=== PATIENT | male | born 1970 | race African-American/Black ===

== ENCOUNTER 2019-11-23 14:12 | Observation (INO) ==
[2019-11-23] MEDS ORDERED: ENOXAPARIN 100 MG/ML SYRINGE SUBCUT STA (14:17)
[2019-11-23 14:27] LABS: Basophils % 0.4 % (0.0-0.8); Eosinophils # 0.1 10*3/uL (0.0-0.87); Hematocrit 40.3 VOL% (42.0-52.0); Hemoglobin 13.3 GM/DL (14.0-18.0); Immature Granulocytes % 0.5 %; Immature Granulocytes Absolute 0.05 #; Lymphocytes # 3.8 10*3/uL (1.4-4.0); Lymphocytes % 36.9 % (21.2-54.2); Mean Corpuscular Volume 84.5 FL (87-102); Mean Platelet Volume 9.8 FL (9.6-12.0); Monocytes % 8.5 % (1.7-12.7); Neutrophils % 52.7 % (38.7-73.9); Platelet Count 249 T/CUMM (130-400); Red Blood Count 4.77 MC/CUMM (3.8-5.5); Red Cell Distribution Width 11.9 % (9.3-17.3); White Blood Count 10.3 T/CUMM (4-12)
[2019-11-23 14:39] LABS: PT Patient Result 10.8 SECS (9.8-11.9); Partial Thromboplastin Time 29.6 SECS (23.9-33.8)
[2019-11-23 14:48] LABS: Albumin 3.2 G/DL (3.4-5.0); Bilirubin,Total 0.4 MG/DL (0.2-1.0); Calcium 8.7 MG/DL (8.5-10.1); Osmolality,Calculated 271.8 MOS/KG (273-304); Total Protein 7.1 G/DL (6.4-8.3)
[2019-11-23] MEDS ORDERED: GLUCAGON 1 MG VIAL IM PRN (15:12)
[2019-11-23] MEDS ORDERED: ACETAMINOPHEN 325 MG TABLET PO PRN (15:12)
[2019-11-23] MEDS ORDERED: hydrALAZINE 20 MG/1 ML VIAL IV PRN (15:12)
[2019-11-23] MEDS ORDERED: ZALEPLON 5 MG CAPSULE PO PRN (15:12)
[2019-11-23] MEDS ORDERED: ONDANSETRON 4 MG/2 ML VIAL IV PRN (15:12)
[2019-11-23] MEDS ORDERED: traZODone 50 MG TABLET PO PRN (15:12)
[2019-11-23] MEDS ORDERED: MORPHINE 4 MG/1 ML VIAL IV PRN (15:12)
[2019-11-23] MEDS ORDERED: NICOTINE 21 MG/24 HR PATCH TRANSDERM PRN (15:12)
[2019-11-23] MEDS ORDERED: DEXTROSE 50% 25 GM/50 ML VIAL IV PRN (15:12)
[2019-11-23] MEDS ORDERED: amLODIPine 5 MG TABLET PO STA (15:36)
[2019-11-23 17:51] LABS: Ferritin 419.2 ng/ml (26-388)
[2019-11-23] MEDS: INSULIN REGULAR 100 UNIT/ML SUBCUT SCH ×2 (17:56→20:46)
[2019-11-23] MEDS ORDERED: LEVOFLOXACIN INJ 750 MG in PREMIX 1 EACH IV SCH (18:00)
[2019-11-23 18:04] LABS: PT Patient Result 10.8 SECS (9.8-11.9)
[2019-11-23] MEDS: APIXABAN 5 MG TABLET PO SCH (20:43)
[2019-11-23] MEDS ORDERED: INSULIN GLARGINE 100 UNIT/ML SUBCUT SCH (21:00)
[2019-11-24 05:36] LABS: Basophils % 0.6 % (0.0-0.8); Eosinophils # 0.1 10*3/uL (0.0-0.87); Eosinophils % 1.9 % (0.00-10.9); Hematocrit 39.3 VOL% (42.0-52.0); Hemoglobin 13.1 GM/DL (14.0-18.0); Immature Granulocytes % 0.4 %; Immature Granulocytes Absolute 0.03 #; Lymphocytes # 3.4 10*3/uL (1.4-4.0); Lymphocytes % 48.6 % (21.2-54.2); Mean Corpuscular HGB Conc 33.3 GM/DL (32-36); Mean Corpuscular Volume 85.4 FL (87-102); Mean Platelet Volume 9.8 FL (9.6-12.0); Monocytes % 10.3 % (1.7-12.7); Neutrophils % 38.2 % (38.7-73.9); Platelet Count 244 T/CUMM (130-400)
[2019-11-24 06:06] LABS: Eosinophils 3 % (0-10); Hypochromasia 1+; Lymphocytes 46 % (20-55); Platelet Estimate Adequate; Segmented Neutrophils 40 % (50-85); Total Cells Counted 100
[2019-11-24 06:37] LABS: Albumin 2.9 G/DL (3.4-5.0); Bilirubin,Total 0.9 MG/DL (0.2-1.0); Calcium 8.7 MG/DL (8.5-10.1); Risk Ratio 3.18; Thyroid Stimulating Hormone 1.3 uIU/ml (0.358-3.74); Total Protein 6.9 G/DL (6.4-8.3); VLDL CHOLESTEROL 35.6 MG/DL
[2019-11-24] MEDS: INSULIN REGULAR 100 UNIT/ML SUBCUT SCH ×2 (08:14→12:34)
[2019-11-24] MEDS: APIXABAN 5 MG TABLET PO SCH (08:14)
[2019-11-24] MEDS ORDERED: PANTOPRAZOLE 40 MG TABLET PO SCH (09:00)
[2019-11-24] MEDS ORDERED: amLODIPine 5 MG TABLET PO SCH (09:00)
[2019-11-24] MEDS ORDERED: CHLORTHALIDONE 25 MG TABLET PO SCH (09:00)
[2019-11-24 12:06] VITALS: BP 132/80
[2019-11-24] MEDS ORDERED: WARFARIN 5 MG TABLET PO SCH (21:00)
[2019-11-24] MEDS ORDERED: ENOXAPARIN 120 MG/0.8 ML SYRINGE SUBCUT SCH (21:00)
[2019-11-30] MEDS ORDERED: APIXABAN 5 MG TABLET PO SCH (21:00)
== END 2019-11-24 13:41 | disposition home or self-care (01) ==
LOC: EDBD → EDUNIT# → N.ED 14:12 → N.EDINP 14:12 → SUATTDRO 15:12 → N.3E 16:23 → N.2E 16:39
PROVIDERS: ADMIT Internal Medicine; ATTEND Hospitalist